=== PATIENT | female | born 1965 | race Caucasian/White ===

== ENCOUNTER 2018-03-13 14:49 | Emergency (ER) | payer BC ==
--- NOTE | 2018-03-13 18:33 | RADIOLOGY REPORT (SQ) ---
EXAM DESCRIPTION: CHEST 2 VIEWS COMPLETED DATE/TIME: 03/13/2018 6:21 pm REASON FOR STUDY: SOB COMPARISON: 11/30/2015 EXAM PARAMETERS: NUMBER OF VIEWS: two views TECHNIQUE: Digital Frontal and Lateral radiographic views of the chest acquired. RADIATION DOSE: NA LIMITATIONS: none FINDINGS: LUNGS AND PLEURA: No opacities, masses or pneumothorax. No pleural effusion. MEDIASTINUM AND HILAR STRUCTURES: No masses or contour abnormalities. HEART AND VASCULAR STRUCTURES: Heart normal size. No evidence for failure. BONES: No acute findings. HARDWARE: None in the chest. OTHER: No other significant finding. IMPRESSION: NO ACUTE RADIOGRAPHIC FINDING IN THE CHEST. TECHNICAL DOCUMENTATION: JOB ID: [id number] [employer]- All Rights Reserved Reading location - IP/workstation name: [email or web address]
[2018-03-13 18:53] LABS: ABSOLUTE BASOPHILS # (AUTO) 0.1 10^3/uL (0.0-0.2); ABSOLUTE EOSINOPHILS # (AUTO) 0.1 10^3/uL (0.0-0.6); ABSOLUTE LYMPHOCYTES (AUTO) 1.7 10^3/uL (0.5-4.7); ABSOLUTE MONOCYTES (AUTO) 0.4 10^3/uL (0.1-1.4); ABSOLUTE NEUT (AUTO) 4.3 10^3/uL (1.7-8.2); BASOPHILS % (AUTO) 1.1 % (0-2); EOSINOPHILS % (AUTO) 1.9 % (0-6); HEMATOCRIT 37.9 % (36.0-47.0); HEMOGLOBIN 12.3 g/dL (12.0-15.5); LYMPHOCYTES % (AUTO) 26.3 % (13-45); MEAN CORPUSCULAR HEMOGLOBIN 25.8 pg (27.0-33.4); MEAN CORPUSCULAR HGB CONC 32.5 g/dL (32.0-36.0); MEAN CORPUSCULAR VOLUME 79 fl (80-97); MONOCYTES % (AUTO) 6.1 % (3-13); PLATELET COUNT 337 10^3/uL (150-450); RED BLOOD COUNT 4.78 10^6/uL (3.72-5.28); RED CELL DISTRIBUTION WIDTH 15.5 % (11.5-14.0); SEGMENTED NEUTROPHILS % (AUTO) 64.6 % (42-78); TOTAL CELLS COUNTED % (AUTO) 100 %; WHITE BLOOD COUNT 6.6 10^3/uL (4.0-10.5)
[2018-03-13 19:00] LABS: APPEARANCE,URINE CLEAR; BILIRUBIN,URINE NEGATIVE (NEGATIVE); COLOR,URINE YELLOW; GLUCOSE, URINE NEGATIVE (NEGATIVE); KETONES,URINE NEGATIVE (NEGATIVE); LEUKOCYTE ESTERASE,URINE NEGATIVE (NEGATIVE); NITRITE,URINE NEGATIVE (NEGATIVE); PROTEIN,URINE NEGATIVE (NEGATIVE); URINE SPECIFIC GRAVITY 1.015; UROBILINOGEN,URINE NEGATIVE mg/dL (<2.0)
[2018-03-13 19:08] LABS: A TYPE INFLUENZA AG NEGATIVE (NEGATIVE); B INFLUENZA AG NEGATIVE (NEGATIVE)
[2018-03-13 19:18] LABS: ALANINE AMINOTRANSFERASE 27 U/L (9-52); ALBUMIN 4.8 g/dL (3.5-5.0); ALKALINE PHOSPHATASE 79 U/L (38-126); ANION GAP 9 (5-19); ASPARTATE AMINO TRANSFERASE 21 U/L (14-36); BILIRUBIN,DIRECT 0.2 mg/dL (0.0-0.4); BILIRUBIN,TOTAL 0.4 mg/dL (0.2-1.3); BLOOD UREA NITROGEN 14 mg/dL (7-20); CALCIUM 9.7 mg/dL (8.4-10.2); CARBON DIOXIDE 29 mmol/L (22-30); CHLORIDE 101 mmol/L (98-107); GLUCOSE 93 mg/dL (75-110); POTASSIUM 4.1 mmol/L (3.6-5.0); SODIUM 138.7 mmol/L (137-145); TOTAL PROTEIN 7.8 g/dL (6.3-8.2)
[2018-03-13 19:31] LABS: FREE T3 3.27 pg/mL (2.77-5.27); FREE T4 (FREE THYROXINE) 1.18 ng/dL (0.78-2.19)
[2018-03-13 19:45] LABS: THYROID STIMULATING HORMONE 2.54 uIU/mL (0.47-4.68)
--- NOTE | 2018-03-13 20:14 | ER Document Report ---
Entered by ERICKA MADRID SCRIBE 03/13/18 1804 Acting as scribe for:ELHAM BERMAN DO ED General - General Chief Complaint: Abdominal Pain Stated Complaint: ABDOMINAL PAIN/SORE THROAT Time Seen by Provider: 03/13/18 17:25 Notes: 52-year-old female who presents to the emergency department today for complaints of abdominal pain, shortness of breath, throat pain, generalized fatigue, "brain fog" and generalized body aches for x4-5 months. Patient states she saw a provider at [facility] approximately 2 months ago for the same symptoms, blood work was performed, but she never went back for the results. Patient states that she "just wants to get checked out". TRAVEL OUTSIDE OF THE [place] IN LAST 30 DAYS: No - Related Data Allergies/Adverse Reactions: No Known Allergies Allergy (Verified 03/13/18 14:51) Past Medical History - General Information source: Patient - Social History Smoking Status: Never Smoker Cigarette use (# per day): No Chew tobacco use (# tins/day): No Frequency of alcohol use: None Drug Abuse: None Family History: Reviewed & Not Pertinent Patient has suicidal ideation: No Patient has homicidal ideation: No Renal/ Medical History: Denies: Hx Peritoneal Dialysis Past Surgical History: Reports: Hx Section Review of Systems - Review of Systems Constitutional: See HPI, Malaise EENT: See HPI, Throat pain Cardiovascular: No symptoms reported Respiratory: See HPI, Short of breath Gastrointestinal: See HPI, Abdominal pain Genitourinary: No symptoms reported Female Genitourinary: No symptoms reported Musculoskeletal: See HPI, Muscle stiffness Skin: No symptoms reported Hematologic/Lymphatic: No symptoms reported Neurological/Psychological: No symptoms reported -: Yes All other systems reviewed and negative Physical Exam - Vital signs Vitals: Temp Pulse Resp BP Pulse Ox 98.1 F 58 L 16 110/64 97 03/13/18 15:17 03/13/18 15:17 03/13/18 15:17 03/13/18 15:17 03/13/18 15:17 - Notes Notes: PHYSICAL EXAM GENERAL: Alert, interacts well. No acute distress. HEAD: Normocephalic, atraumatic. EYES: Pupils equal, round, and reactive to light. Extraocular movements intact. ENT: Oral mucosa moist, tongue midline. NECK: Full range of motion. Supple. Trachea midline. LUNGS: Clear to auscultation bilaterally, no wheezes, rales, or rhonchi. No respiratory distress. HEART: Regular rate and rhythm. No murmurs, gallops, or rubs. ABDOMEN: Soft, non-tender. Non-distended. Bowel sounds present in all 4 quadrants. No guarding, rigidity, or rebound. EXTREMITIES: Moves all 4 extremities spontaneously. NEUROLOGICAL: Alert and oriented x3. Normal speech. Cranial nerves II through XII grossly intact. Finger to nose and heel to jordan test intact. Deep tendon reflexes 2+ in the biceps and patellar tendons. PSYCH: Normal affect, normal mood. SKIN: Warm, dry, normal turgor. No rashes or lesions noted. Course - Re-evaluation Re-evalutation: 03/13/18 20:05 CBC unremarkable, CMP unremarkable, cardiac enzymes negative, thyroid function studies normal, urinalysis unremarkable, flu swabs negative, chest x-ray shows no acute process. Patient is well-appearing, no source found for her multiple chronic complaints. Patient will be discharged and asked to follow-up with her primary care physician as an outpatient. - Vital Signs Vital signs: Temp Pulse Resp BP Pulse Ox 98.1 F 58 L 16 110/64 97 03/13/18 15:17 03/13/18 15:17 03/13/18 15:17 03/13/18 15:17 03/13/18 15:17 - Laboratory Result Diagrams: 03/13/18 18:02 03/13/18 18:02 Laboratory results interpreted by me: 03/13/18 18:02 MCV 79 L MCH 25.8 L RDW 15.5 H Discharge - Discharge Clinical Impression: Sore throat, Chronic abdominal pain Fatigue Qualifiers: Fatigue type: chronic, unspecified Qualified Code(s): R53.82 - Chronic fatigue, unspecified Condition: Stable Disposition: HOME, SELF-CARE Additional Instructions: Today your blood work was all normal. I did not find an explanation for your s ymptoms. Your thyroid function was normal. Your chest x-ray was normal. It is very important that you follow-up with your primary care physician for further investigation into what is causing your chronic abdominal pain, shortness of breath, sore throat and fatigue. Scribe Attestation: 03/13/18 20:14 I personally performed the services described in the documentation, reviewed and edited the documentation which was dictated to the scribe in my presence, and it accurately records my words and actions. I personally performed the services described in the documentation, reviewed and edited the documentation which was dictated to the scribe in my presence, and it accurately records my words and actions.
[2018-03-13 20:23] VITALS: BP 111/60
== END 2018-03-13 20:23 | disposition home or self-care (01) ==
LOC: ER 14:49
DX: J02.9 Acute pharyngitis, unspecified (principal); R53.82 Chronic fatigue, unspecified; R10.9 Unspecified abdominal pain; G89.29 Other chronic pain; R06.02 Shortness of breath; R29.898 Other symptoms and signs involving the musculoskeletal system; R53.81 Other malaise
CPT/HCPCS: 36415; 71046; 80053; 81001; 84439; 84443; 84481; 84484; 85025; 87804; 99284